=== PATIENT | male | born 1960 | race Caucasian/White ===

== ENCOUNTER 2021-02-21 12:45 | Outpatient (CLI) | payer MEDICARE, SELFPAY ==
--- NOTE | 2021-02-21 13:00 | CT_ITS ---
WS: [id number] CT HEAD TECHNIQUE: Noncontrast and contrast-enhanced CT of the head. CLINICAL INFORMATION: R53.1 - Weakness COMPARISON: None. DLP: 1984.[address] scans at [facility] use at least one of these dose optimization techniques: automated e xposure control; mA and/or kV adjustment per patient size (includes targeted exams where dose is matc hed to clinical indication); or iterative reconstruction. FINDINGS: No evidence of intracranial hemorrhage or mass effect. Ventricular system and basal cisterns are perez nt. Incidental cavum septal pellucidum and vergae. Prior postoperative changes left frontoparietal an d temporal craniotomy. Associated encephalomalacia in the underlying left frontal parietal junction. Intracranial vascular calcification. Chronic lacunar infarct left midbrain. Evidence of chronic ische sharita in the left frye radiata extending into the posterior limb internal capsule. No abnormal intrac ranial enhancement. Paranasal sinuses and mastoid air cells are well aerated. CT/CT head wo/w con [id number] IMPRESSION: 1. No evidence of intracranial hemorrhage or mass effect. 2. Prior postoperative changes left frontoparietal temporal craniotomy with un derlying encephalomalacia at the frontoparietal junction. 3. Mild small vessel changes moderate parenchymal volume loss. 4. No abnormal intracranial enhancement. 5. 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 6. No other significant findings.
[2021-02-21 13:23] LABS: Blood Urea Nitrogen 8 mg/dL (8-23); Glomerular Filtration Rate 136.5 mL/min (90-130)
[2021-02-21] MEDS: iohexol 300 mg/mL 100 mL Btl IV (13:35)
== END 2021-02-21 12:46 | disposition home or self-care (01) ==
PROVIDERS: PCP Family Medicine; Visit Provider Nurse Practitioner Family
DX: R53.1 Weakness; Z01.812 Encounter for preprocedural laboratory examination; G93.89 Other specified disorders of brain; I67.82 Cerebral ischemia
CPT/HCPCS: 70470; 82565; 84520; Q9967

== ENCOUNTER → 2021-02-27 09:40 | Outpatient (BNVA) | payer MEDICARE, SELFPAY | PROVIDERS: PCP Family Medicine; Visit Provider Family Medicine | DX: I10 Essential (primary) hypertension (principal); E11.59 Type 2 diabetes mellitus with other circulatory complications; Z72.0 Tobacco use; Z13.220 Encounter for screening for lipoid disorders; Z13.6 Encounter for screening for cardiovascular disorders; Z79.4 Long term (current) use of insulin | CPT/HCPCS: 80053; 80061; 83036 ==

== ENCOUNTER → 2021-07-03 08:44 | Outpatient (BNVA) | payer MEDICARE, SELFPAY | PROVIDERS: PCP Family Medicine; Visit Provider Family Medicine | DX: S62.101A Fracture of unspecified carpal bone, right wrist, initial encounter for closed fracture (principal); X58.XXXA Exposure to other specified factors, initial encounter; I10 Essential (primary) hypertension; E11.59 Type 2 diabetes mellitus with other circulatory complications; Z79.4 Long term (current) use of insulin | CPT/HCPCS: 73110; 80053; 83036 ==

== ENCOUNTER → 2021-09-04 07:49 | Outpatient (BNVA) | payer MEDICARE, SELFPAY | PROVIDERS: PCP Family Medicine; Referring Provider Family Medicine; Visit Provider Specialist | DX: G56.01 Carpal tunnel syndrome, right upper limb (principal); G56.21 Lesion of ulnar nerve, right upper limb; F17.200 Nicotine dependence, unspecified, uncomplicated | CPT/HCPCS: 95908 ==

== ENCOUNTER → 2021-09-27 10:37 | Outpatient (BNVA) | payer MEDICARE, SELFPAY | PROVIDERS: PCP Family Medicine; Visit Provider Emergency Medicine | DX: E11.9 Type 2 diabetes mellitus without complications (principal); E11.59 Type 2 diabetes mellitus with other circulatory complications; Z79.4 Long term (current) use of insulin | CPT/HCPCS: 82962 ==

== ENCOUNTER → 2021-11-07 09:08 | Outpatient (BNVA) | payer MEDICARE, SELFPAY | PROVIDERS: PCP Family Medicine; Visit Provider Family Medicine | DX: E11.9 Type 2 diabetes mellitus without complications (principal); Z79.4 Long term (current) use of insulin; I10 Essential (primary) hypertension; G56.01 Carpal tunnel syndrome, right upper limb | CPT/HCPCS: 83036 ==

== ENCOUNTER → 2021-11-15 10:01 | Outpatient (BNVA) | payer MEDICARE, SELFPAY | PROVIDERS: PCP Family Medicine; Visit Provider Orthopaedic Surgery | DX: S52.501P Unspecified fracture of the lower end of right radius, subsequent encounter for closed fracture with malunion (principal); W11.XXXD Fall on and from ladder, subsequent encounter; G56.21 Lesion of ulnar nerve, right upper limb; G56.01 Carpal tunnel syndrome, right upper limb | CPT/HCPCS: 99204 ==

== ENCOUNTER → 2022-04-02 12:10 | Outpatient (BNVA) | payer MEDICARE, SELFPAY | PROVIDERS: PCP Family Medicine; Visit Provider Family Medicine | DX: L02.01 Cutaneous abscess of face (principal); I10 Essential (primary) hypertension; E11.9 Type 2 diabetes mellitus without complications; Z13.6 Encounter for screening for cardiovascular disorders; Z13.220 Encounter for screening for lipoid disorders; E11.59 Type 2 diabetes mellitus with other circulatory complications; Z79.4 Long term (current) use of insulin; E16.2 Hypoglycemia, unspecified | CPT/HCPCS: 80053; 80061; 83036 ==